=== PATIENT | female | born 1965 | race Caucasian/White ===

== ENCOUNTER 2019-02-24 14:21 | Emergency (ER) | payer BC, MEDICAID, SELFPAY ==
[2019-02-24 14:26] VITALS: BP 130/80; PULSE 104; RESP 20; TEMP 36.6; O2SAT 96
[2019-02-24 15:14] LABS: Abs Immature Grans 0.02 k/cumm (0.0-0.09); Absolute Basophil Count 0.07 k/cumm (0.0-0.2); Absolute Lymphocyte Count 2.11 k/cumm (1.2-3.4); Absolute Monocyte Count 0.78 k/cumm (0.11-0.7); Absolute Neutrophil Count 4.59 k/cumm (1.2-6.7); Basophils % 0.9; Eosinophils % 1.3; HCT 40.1 % (36.0-46.0); HGB 13.6 g/dL (12.0-15.5); Immature Grans % 0.3; Lymphocytes % 27.5; Mean Corp. HGB Concentration 33.9 g/dL (32.0-36.0); Mean Corpuscular Hemoglobin 32.7 pg (27.0-33.0); Mean Corpuscular Volume 96.4 fL (80-95); Mean Platelet Volume 8.8 fL (8.0-11.0); Monocytes % 10.2; Neutrophils % 59.8; Platelet Count 319 x1000/uL (130-400); RBC 4.16 m/cumm (4.00-5.20); RBC Distribution Width 11.9 % (11.7-14.6); White Blood Cell Count 7.67 k/cumm (4.4-10.8)
[2019-02-24 15:29] LABS: ALT 72 U/L (14-59); AST 72 U/L (15-37); Albumin 3.9 g/dL (3.4-5.0); Alkaline Phosphatase 111 U/L (46-116); Anion Gap 13.5 mmol/L (3-11); BUN 7 mg/dL (7-18); Bilirubin, Total 0.3 mg/dL (0.2-1.0); CO2 24.5 mmol/L (21.0-32.0); CREATININE 0.89 mg/dL (0.55-1.02); Calcium 8.5 mg/dL (8.5-10.1); Chloride 104 mmol/L (98-107); ETHANOL BLOOD 189.7 mg/dL (<3); Glucose 103 mg/dL (70-100); Potassium 3.6 mmol/L (3.5-5.1); Sodium 142 mmol/L (136-145); Total Protein 7.8 g/dL (6.4-8.2)
[2019-02-24] MEDS: LORazepam 0.5 MG TAB (15:45)
[2019-02-24 15:46] LABS: Salicylate < 2.8 mg/dL (2.8-20.0)
[2019-02-24 15:51] LABS: Acetaminophen < 2 ug/mL (10-30)
--- NOTE | 2019-02-24 16:17 | W.ED.GENAD ---
Discharge Plan Disposition Patient Disposition: HOME Condition: Fair Discharge Details Chief Complaint: Suicide-Atempt Clinical Impression: Alcohol abuse, Depression, Thoughts of self harm Primary Care Provider: Gloria,Local ED Provider: Norma Rose Home Meds and New Rx's Prescriptions: Continued sertraline 100 mg Tablet 150 mg PO DAILY AM RF: 0 Discharge Instructions Instructions: Depression (ED), Abuse of Alcohol (ED) Additional Instructions: Encourage hydration with water. Please stop drinking. Please follow-up with your primary care this week for reevaluation discussed local options for your grief counseling and alcohol rehabilitation. If you develop recurrent thoughts of self-harm, thoughts of harming others or the new/worsening symptoms please seek care urgently once again. You have agreed to stay in the area locally and will be reevaluated tomorrow by [facility] human services. They are available throughout the evening at [phone] Discharge Data Discharge Date/Time-TO BE ENTERED AT DEPARTURE: 02/24/19 21:25 Medical Decision Making <Wilfredo Swanson NP - Last Filed: 02/25/19 10:05> Patient presenting to the emergency department for chief complaint of suicidal ideations and alcoholism. She states that she is here voluntarily seeking help for both of these situations. Patient states that alcoholism started with becoming ill and recently passing approximately 2 months ago. Since his passing she has had worsening depression. She admits to drinking at least 1 bottle of wine every night but otherwise she has been functioning and going to work. Patient does have history of depression and takes sertraline but has been taking intermittently. Patient also does have breast cancer which she has been getting hormone therapy for but has been cancer free for coming up on 5 years. Patient did reach out to sister to inform her of thoughts of suicidality today with plan to take her dogs trazodone with excessive amounts of alcohol and go asleep patient states that upon thinking about it more and talking with her sister she knows that this is really not what she wants to do but that she wants help. Patient denies any medical needs. Physical exam is unremarkable. Plan to check screening labs including alcohol level and have patient screened by mental health after patient reaches sobriety. Patient states slight anxiety so was given 0.5 mg of Ativan pending results. Review of labs shows nondiagnostic CBC, CMP with slightly elevated anion gap and mildly elevated AST and ALT but nothing emergent. Patient has less than detectable acetaminophen and salicylates and alcohol level of 189. <TIMMY Keane - Last Filed: 02/25/19 01:13> Care transition to myself from Wilfredo Swanson NP. Patient presented initially with concern for suicidal ideation. Please see his note for initial presentation and work-up. When the time of took over care, they are awaiting the patient to be sober for mental health evaluation. When I introduced myself to the patient and evaluated her, she does appear clinically sober. Reviewed her labs. Patient has a slight anion gap of 13.5. AST is elevated at 72, ALT elevated at 72. Alcohol level 189. Patient reports she drinks at least a bottle of wine daily. Endorses only one hard lemonade prior to coming in today. Reports to me that her depressive symptoms which she associates with her 's 8 months ago, waxes and wanes. She does find that when she is drinking more, her grief seems to be increased. She reports this also can lead her to not taking her medication as that she is prescribed. She does find that the sertraline helps and she is able to sleep with an daily basis. States she was having bad day and began having thoughts of self-harm. She seems to have good personal insight and is not truly suicidal at this time. Rather, the patient wants help to stop having these thoughts, abusing alcohol and get help in the grieving process. Patient is from [place] but is requesting care in this area given her status in the community. She did have an elevated alcohol level, I feel that she is appropriate for evaluation at this time as this is likely her baseline daily alcohol level. Patient was evaluated by mental health. While initially, she was reporting she would like inpatient care, patient is now requesting discharge. Mental health does feel that she has clinical capacity to make this decision. I agree with this. She does seem forward thinking and is not seeing imminent risk to herself or others. However, she drove herself here, cannot letter leave given the alcohol and that she has been intentions to drive. Patient again has changed her mind and is requesting inpatient placement. Mental health will begin helping with this process so patient may get treatment for both her depression and her alcohol abuse. Patient is now requesting discharge. She has not been actively suicidal and since I have been with her. She is appropriate. Spoke with her family who she reports are very supportive and want to be able to help her in the right linear area be able to deal long-term with her grieving process and alcoholism. She has intentions to begin treatment for both. She will see a grief counselor as well as a rehabilitation online health and fitness coach. Patient, mental health, and myself had a lengthy discussion regarding treatment options. Patient feels strongly that she would like to go home at this time, in particular would like to be able care of her dog. Patient is clinically sober. Denies asked the degreasing solution reclaimer to breathalyzed the patient to ensure she is safe to drive. Breathalyzer is 0.02. Repeat breathalyzer an hour later is 00. Patient is safe for discharge and driving at this time. She is requesting discharge still. She does have a good plan set up with mental health will that include close follow-up with primary care, grief counseling, rehabilitation for alcoholism, patient staying in the area tonight so she may be reevaluated by them tomorrow morning, disposal of the trazodone. She seems very agreeable with this and seems to feel improved with the plan established. She is been eating and drinking in the department. No acute abnormalities noted on physical exam. I feel that she is safe to be discharged at this time. All of her questions and concerns were addressed she is in agreement this plan. [facility] Per the agreement that she in mental health came about, patient gave myself her bottle of trazodone that she had initially been thinking about self-harm. This was disposed by me and witnessed by Gladys Kitchen RN. HPI <Wilfredo Swanson NP - Last Filed: 02/25/19 10:05> General Mode of arrival: ambulatory. Date/Time Provider Initiated Documentation: 02/24/19 14:32. Limitations to Documentation: no limitations. Information obtained by: patient and RN notes reviewed. History of Present Illness 53 year old F presents to the emergency department with the chief complaint of Suicidal ideations, Quality is described as other (Denies medical complaint), Patient started experiencing this month(s) (8) Patient notes no other symptoms.. Patient did receive the following treatments prior to arrival, none Related Data Home Medications Medication Instructions Recorded Confirmed sertraline 150 mg PO DAILY AM 02/24/19 02/24/19 Allergies Allergy/AdvReac Type Severity Reaction Status Date / Time No Known Allergies Allergy Unverified 02/24/19 14:31 General Stated Complaint: Suicide-Atempt MEGAN: 2 Review of Systems <Wilfredo Swanson NP - Last Filed: 02/25/19 10:05> Constitutional Constitutional: Denies fever(s) Cardiovascular Cardiovascular: Denies chest pain and Denies dyspnea Respiratory Respiratory: Denies cough and Denies dyspnea Gastrointestinal Gastrointestinal: Denies abdominal pain, Denies diarrhea, Denies nausea and Denies vomiting Genitourinary Genitourinary: Denies dysuria Psychiatric Psychiatric: Reports as per HPI, Reports depression, Reports irritability, Reports mood swings and Reports other (Alcohol abuse due to depression) PFSH <Wilrfedo Swanson NP - Last Filed: 02/25/19 10:05> Medical History Breast CA (Chronic) Social History Alcohol Intake: current Alcohol type: hard liquor Details: pt states that she drank hard lemonaide prior to walking into the ER Do you feel safe at home: No Exam <Wilfredo Swanson NP - Last Filed: 02/25/19 10:05> Const General: cooperative Orientation: alert, awake and oriented x3 Limitations: mental status not altered HENMT Head: normal to inspection, normocephalic and atraumatic Ears: hearing grossly normal bilaterally Mouth: moist mucous membranes Eyes General: appearance normal, both eyes and all related structures Pupils: PERRL EOM: EOM intact bilaterally Neck Thyroid: thyroid normal Resp Effort & Inspection: normal respiratory effort, able to speak in complete sentences and no respiratory distress Auscultation: clear to auscultation bilaterally Cardio Rate: regular rate and not tachycardic Rhythm: regular rhythm Heart Sounds: S1 normal, S2 normal, no click, no gallops, no murmurs and no rubs Neuro General: alert, awake, oriented x3, gait normal, moves all extremities and no focal motor deficits Cognition: normal cognition Speech: speech normal Psych Appearance: grossly normal Mental Status: mental status grossly normal Speech and Movement: speech and movement normal and speech clear Mood: anxious mood Affect: sad Attitude: cooperative Thought Content: suicidality (With plan of severe intoxication and overdose) Course <Wilfredo Swanson NP - Last Filed: 02/25/19 10:05> Vital Signs Vital signs: Vital Signs Temperature 36.6 C 02/24/19 14:26 Pulse 104 H 02/24/19 14:26 Respiratory Rate 20 02/24/19 14:26 Blood Pressure 130/80 02/24/19 14:26 Pulse Oximetry 96 02/24/19 14:26 Temperature 36.6 C 02/24/19 14:26 Temperature Source Tympanic 02/24/19 14:26 Pulse 104 H 02/24/19 14:26 Respiratory Rate 20 02/24/19 14:26 Respiratory Effort 02/24/19 14:42 Blood Pressure 130/80 02/24/19 14:26 Blood Pressure Position Sitting 02/24/19 14:26 Pulse Oximetry 96 02/24/19 14:26 Oxygen Delivery Method Room Air 02/24/19 14:26 Oxygen Flow Rate 0 02/24/19 14:26 Lab/Test Results Lab/Test Results: Laboratory Tests Range/Units 02/24/19 02/24/19 02/24/19 15:08 15:08 15:08 WBC (4.4-10.8) k/cumm 7.67 RBC (4.00-5.20) m/cumm 4.16 Hgb (12.0-15.5) g/dL 13.6 Hct (36.0-46.0) % 40.1 MCV (80-95) fL 96.4 H MCH (27.0-33.0) pg 32.7 MCHC (32.0-36.0) g/dL 33.9 RDW (11.7-14.6) % 11.9 Plt Count (130-400) x1000/uL 319 MPV (8.0-11.0) fL 8.8 Immature Gran % 0.3 Neutrophils % 59.8 Lymphocytes % 27.5 Monocytes % 10.2 Eosinophils % 1.3 Basophils % 0.9 Absolute Neutrophils (1.2-6.7) k/cumm 4.59 Absolute Lymphocytes (1.2-3.4) k/cumm 2.11 Absolute Monocytes (0.11-0.7) k/cumm 0.78 H Absolute Eosinophils (0.0-0.7) k/cumm 0.10 Absolute Basophils (0.0-0.2) k/cumm 0.07 Sodium (136-145) mmol/L 142 Potassium (3.5-5.1) mmol/L 3.6 Chloride (98-107) mmol/L 104 Carbon Dioxide (21.0-32.0) mmol/L 24.5 Anion Gap (3-11) mmol/L 13.5 H BUN (7-18) mg/dL 7 Creatinine (0.55-1.02) mg/dL 0.89 Estimated GFR/1.73 m2 (mL/min/1.73m2) >= 60.00 Glucose (70-100) mg/dL 103 H Calcium (8.5-10.1) mg/dL 8.5 Total Bilirubin (0.2-1.0) mg/dL 0.3 AST (15-37) U/L 72 H ALT (14-59) U/L 72 H Alkaline Phosphatase (46-116) U/L 111 Total Protein (6.4-8.2) g/dL 7.8 Albumin (3.4-5.0) g/dL 3.9 Salicylates (2.8-20.0) mg/dL < 2.8 L Acetaminophen (10-30) ug/mL < 2 L Ethyl Alcohol (<3) mg/dL 189.7 Sign Out <Wilfredo Swanson NP - Last Filed: 02/25/19 10:05> Sign Out Data: Sign Out Comment: Patient signed out to TIMMY Macedo pending medical clearance for alcohol within acceptable level for mental health examination. Last updated by Wilfredo Swanson NP at 02/24/19 16:23
--- NOTE | 2019-02-24 16:58 | CMSP_ITS ---
- If Service Date Differs Date of service: 02/24/19 Time of Service: 16:58 Care Management Safety Plan Chief Complaint: Per chart review and provider input, Debra presented with suicidal ideation and a history of and current use of alcohol. Debra is unable to engage with CM at this time due to intoxication. Care management requested to enter an interim plan while patient is being medically cleared. Per chart review, Debra has a history of depression. She reports to provider that she takes her medication intermittently. Patient supports unknown at this time. Last address is [place], [place], and no local PCP. CM will assess supports once patient is medically cleared and able to engage. CM will facilitate interdepartmental huddle with [facility] screener for safety planning considerations and meet with patient to review [facility] policy and safety plan, establish individual wishes for treatment and maintain patient rights. Nursing auto mechanic supervisor updated of interim safety plan and will participate in huddle once patient is medically cleared. In the interim; please note safety plan below to guide patient care while awaiting further assessment in the ED. SAFETY PLAN: 1. Will remain on suicide precautions and in paper clothes. 2. Will remain in room under direct supervision of one-on-one staff at all times provided by SARI, CREATIVE DIRECTOR color expert. 3. May have paper cups, plates, finger foods as well as a cardboard spoon with which to eat meals. 4. Follow [facility] Management of the Admitted Behavioral Health Patient policy. 5. Comfort bath system only. 6. No personal belongings 7. No visitors. 8. Phone contact at the discretion of primary care team. 9. Due to VOLUNTARY status, if patient wishes to leave [facility], the [facility] typing office worker must be contacted to re-evaluate patient prior to patient exiting the building. If deemed appropriate for inpatient psychiatric care, safety plan will be established with patient, and care team, to adhere to patient goals, identify restrictions based on behavioral status, address nutrition, and determine allo wed personal belongings, tools for hygiene and personal care. As well plan will determine level of activity including ambulation, level of supervision, visitors, and determine privileges based on level of acuity, behaviors and level of engagement by patient.
[2019-02-24 17:14] LABS: Bilirubin Negative (Negative); Blood Negative (Negative); Clarity Clear (Clear); Glucose Negative (Negative); Ketones Negative (Negative); Leukocyte Esterase Negative (Negative); Nitrite Negative (Negative); Urobilinogen 0.2 EU/dL (Up TO 0.2); pH 5.5 (5-8)
[2019-02-24 17:24] LABS: *AMPHETAMINES SCREEN URINE Negative (Negative); *BARBITURATES SCREEN URINE Negative (Negative); *BENZODIAZEPINES SCREEN URINE Negative (Negative); Cannabinoids THC Negative (Negative); Cocaine Screen,Urine Negative (Negative); METHADONE URINE SCREEN Negative (Negative); OPIATES URINE SCREEN Negative (Negative)
[2019-02-24 17:45] LABS: Tricyclic Antidepressants Negative (Negative)
[2019-02-24] MEDS: Mylanta Suspension 30 ML CUP (18:27)
[2019-02-24] MEDS: LORazepam 1 MG TAB PO (18:29)
--- NOTE | 2019-02-24 21:28 | NUR.NOTE ---
pt gave the bottle of trazadone ( that was for her dog ) to Norma Sharma and Gladys Bailey. we wasted it . Nursing Note:
--- NOTE | 2019-03-07 20:01 | PDOC.MHCN ---
Date of service: 02/24/19 Time of Service: 17:50 Mental Health Crisis Note Presenting Issue How did you arrive at the ED and why did you come: Patient was asked to be screened by [facility] - Client was intoxicated Precipitating Factors Patient reported that they have suffered from Depression over the years and recently has been grieving the loss of their , as he passed earlier in the year. 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 She reports that she packed her dogs and hers, with the thought of harming herself. She reports that she was talking on the phone to a loved one and they told her to get to the nearest place that can help you, as she was also intoxicated and reported drinking before being admitted. Disposition BEHAVIOR: Patient presented tearful but, willing to openly share. Patient shared that they are not comfortable accessing resources in their community, as there is always a wait list but, that they have a brother who lives with them and is very supportive. EYE CONTACT: Patient maintained appropriate eye contact. MOOD: Client was calm, pleasant, depressed due to the grief they were experiencing. AFFECT: Normal Expansive APPETITE: Client reported to be eating but, not healthy selections. SLEEP(trouble falling/staying asleep: Patient shared that they were sleeping okay. Plan Patient changed their mind several times. They wanted to go to a Crisis bed, stay overnight at the ED, have their siblings come and pick them up from the [facility] [place]. However, they waited until they blew zeros went to a local hotel, that the hospital helped the patient find, and planned on staying there for the evening. Emergency services will call in the morning to make sure she is safe and headed home. Patient reached out to their brother to let them know their plans. Provisional Diagnosis Adjustment disorder: with depressed mood Signature Clinician's Name/Title: Emelia Peñaloza, Emergency Mental health
== END 2019-02-24 21:25 | disposition home or self-care (01) ==
PROVIDERS: Nurse Practitioner Family; Emergency Provider Physician Assistant
DX: F32.9 Major depressive disorder, single episode, unspecified (principal); F10.10 Alcohol abuse, uncomplicated; R45.851 Suicidal ideations; Z63.4 Disappearance and death of family member
CPT/HCPCS: 36415; 80053; 80307; 99285; 80320; 80329; 81003; 85025